=== PATIENT | female | born 1965 | race Caucasian/White ===

== ENCOUNTER 2017-10-22 05:01 | Inpatient (IN) | payer OTHER ==
[2017-10-19 14:02] VITALS: BMI 31.4
[2017-10-22] MEDS ORDERED: GENTAMICIN SO4 80 MG/2 ML VIAL ONE (07:23)
[2017-10-22] MEDS ORDERED: THROMBIN (BOVINE) 5,000 UNIT VIAL TP ONE ×3 (07:23→09:02)
[2017-10-22] MEDS ORDERED: THROMBIN (BOVINE) 20,000 UNIT VIAL TP ONE (07:23)
--- NOTE | 2017-10-22 07:28 | HP ---
History & Physical Update - History History: No Change - Physical Physical: No Change - Assessment Assessment: No Change - Plan Plan: No Change (no changes since visit on 10/15/[address] Sandhu)
[2017-10-22] MEDS ORDERED: MIDAZOLAM HCL 2 MG/2 ML SINGLE DOSE VIAL ONE (07:32)
[2017-10-22] MEDS ORDERED: ROCURONIUM BROMIDE 50 MG/5 ML VIAL ONE (07:32)
[2017-10-22] MEDS ORDERED: PROPOFOL 20 ML ONE (07:32)
[2017-10-22] MEDS ORDERED: LIDOCAINE HCL/PF 2% SDV 5ML VIAL ONE ×2 (07:33→09:55)
[2017-10-22] MEDS ORDERED: ceFAZolin SODIUM 1 GM VIAL ONE ×2 (07:58→17:10)
[2017-10-22] MEDS ORDERED: ceFAZolin SODIUM 1 GM VIAL IVPB ONE (07:59)
[2017-10-22] MEDS ORDERED: VANCOMYCIN 1,000 MG VIAL (RESTRICTED TO ID ONLY) ONE (08:07)
[2017-10-22] MEDS ORDERED: ONDANSETRON 4 MG/2 ML VIAL ONE ×2 (08:07→09:49)
[2017-10-22] MEDS ORDERED: DEXAMETHASONE SOD PHOSPHATE 4 MG/1 ML VIAL ONE ×2 (08:07→09:49)
[2017-10-22] MEDS ORDERED: VANCOMYCIN 1,000 MG VIAL (RESTRICTED TO ID ONLY) IVPB ONE (08:08)
[2017-10-22] MEDS ORDERED: GLYCOPYRROLATE 0.2 MG/1 ML VIAL ONE ×2 (08:30→09:30)
[2017-10-22] MEDS ORDERED: ACETAMINOPHEN INJECTION 100 ML IVPB ONE (08:41)
[2017-10-22] MEDS ORDERED: GELATIN, ABSORBABLE 100 EACH SPONGE TP ONE (08:46)
[2017-10-22] MEDS ORDERED: NEOSTIGMINE METHYLSULFATE 0.5 MG/ML - 10 ML MDV ONE (09:30)
[2017-10-22] MEDS ORDERED: PROMETHAZINE HCL 25 MG/1 ML VIAL IVPUSH PRN (10:26)
[2017-10-22] MEDS ORDERED: ONDANSETRON 4 MG/2 ML VIAL IVPUSH PRN ×2 (10:26→10:32)
[2017-10-22] MEDS ORDERED: diphenhydrAMINE HCL 25 MG CAPSULE (FP) PO PRN (10:32)
[2017-10-22] MEDS ORDERED: morphine SULFATE 4 MG/ML VIAL IVPUSH PRN (10:32)
[2017-10-22] MEDS ORDERED: oxyCODONE HCL 5 MG TABLET PO PRN ×2 (10:32)
[2017-10-22] MEDS ORDERED: LACTATED RINGERS SOLUTION 1,000 ML/1,000 ML INFUS.BAG IV SCH (10:45)
[2017-10-22] MEDS: LACTATED RINGERS SOLUTION 1,000 ML IV SCH ×2 (14:30→23:36)
[2017-10-22] MEDS ORDERED: CEFAZOLIN 1 GM in DEXTROSE 5%-WATER - 50 ML IVPB SCH (16:30)
[2017-10-22] MEDS ORDERED: ALBUTEROL SO4 8 GM HFA INHALER IH PRN (16:46)
[2017-10-22] MEDS ORDERED: DEXTROSE 5%-WATER - 50 ML IVPB ONE (17:10)
[2017-10-22] MEDS: CEFAZOLIN 1 GM in DEXTROSE 5%-WATER - 50 ML IVPB SCH (17:17)
[2017-10-22] MEDS ORDERED: PT OWN MED DRAWER 7, Y5N ONE (18:50)
[2017-10-22] MEDS: levETIRAcetam 500 MG TABLET (FP) PO SCH (21:49)
[2017-10-23] MEDS ORDERED: ceFAZolin SODIUM 1 GM VIAL ONE ×2 (00:33→09:50)
[2017-10-23] MEDS ORDERED: DEXTROSE 5%-WATER - 50 ML IVPB ONE ×2 (00:33→09:50)
[2017-10-23] MEDS: CEFAZOLIN 1 GM in DEXTROSE 5%-WATER - 50 ML IVPB SCH ×2 (01:28→09:52)
[2017-10-23] MEDS: HEPARIN NA (PORCINE) 5,000 UNITS/ML 1ML VIAL SQ SCH ×2 (06:36→13:52)
[2017-10-23 07:22] LABS: HEMATOCRIT 37.5 % (32.4-45.2); HEMOGLOBIN 12.1 GM/dL (10.7-15.3); MCH 24.8 pg (25.7-33.7); MCHC 32.2 g/dl (32.0-36.0); MEAN CELL VOLUME 77.2 fl (80-96); MEAN PLT VOLUME 8.6 fl (7.5-11.1); PLATELET COUNT 203 K/MM3 (134-434); RBC 4.86 M/mm3 (3.60-5.2); RDW 14.2 % (11.6-15.6); WHITE BLOOD COUNT 14.8 K/mm3 (4.0-10.0)
--- NOTE | 2017-10-23 07:57 | PN ---
Progress Note (short form) - Note Progress Note: * Post op day#1.S/P exploration of anterior cervical fusion with removal of hardware C4-C5,C6-C7 ACDF with reconstuction and cage placement under Ga uneventful.Patient stable and doing great.No any anesthesia related problem.Patient DC from the anesthesia care.
[2017-10-23 08:15] LABS: CHLORIDE 107 mmol/L (98-107); SODIUM 141 mmol/L (136-145)
[2017-10-23 08:29] LABS: ALK PHOS 79 U/L (45-117); ANION GAP 8 (8-16); BILIRUBIN,TOTAL 0.3 mg/dL (0.2-1.0); BLOOD UREA NITROGEN 9 mg/dL (7-18); CALCIUM 8.6 mg/dL (8.5-10.1); CO2 26 mmol/L (21-32); CREATININE 0.5 mg/dL (0.55-1.02); GLUCOSE,RANDOM 84 mg/dL (74-106); SGOT/AST 12 U/L (15-37); SGPT/ALT 15 U/L (12-78); TOT PROT 5.9 g/dl (6.4-8.2)
[2017-10-23] MEDS: levETIRAcetam 500 MG TABLET (FP) PO SCH (09:53)
[2017-10-23 10:00] VITALS: BP 99/57; PULSE 54; TEMP 98.8
[2017-10-23] MEDS ORDERED: FOLIC ACID 1 MG TABLET (FP) PO SCH (10:00)
[2017-10-23] MEDS ORDERED: FERROUS SO4 325 MG TABLET (FP) PO SCH (10:00)
[2017-10-23] MEDS ORDERED: BUDESONIDE/FORMETEROL FUMARATE 80/4.5 mcg INHALER IH SCH (10:00)
--- NOTE | 2017-10-23 11:25 | PN ---
Progress Note, Physician Chief Complaint: Spinal surgery History of Present Illness: Post op day#1.S/P exploration of anterior cervical fusion with removal of hardware C4-C5,C6-C7 ACDF with reconstuction and cage placement Seen by Neurosurgery - Current Medication List Current Medications: Active Medications Albuterol Sulfate (Ventolin Hfa Inhaler -) 1 puff IH Q4H PRN PRN Reason: ASTHMA Last Admin: 10/23/17 09:53 Dose: 1 puff Budesonide/Formoterol Fumarate (Symbicort 80/4.5mcg -) 1 puff IH DAILY [facility] Diphenhydramine HCl (Benadryl -) 25 mg PO Q6H PRN PRN Reason: FOR ITCHING Ferrous Sulfate (Feosol -) 325 mg PO DAILY [facility] Last Admin: 10/23/17 09:52 Dose: 325 mg Folic Acid (Folic Acid -) 1 mg PO DAILY [facility] Last Admin: 10/23/17 09:52 Dose: 1 mg Heparin Sodium (Porcine) (Heparin -) 5,000 unit SQ TID [facility] Last Admin: 10/23/17 06:36 Dose: 5,000 unit Lactated Ringer's (Lactated Ringers Solution) 1,000 mls @ 125 mls/hr IV ASDIR [facility] Last Admin: 10/22/17 23:36 Dose: 125 mls/hr Cefazolin Sodium 1 gm/ (Dextrose) 50 mls @ 100 mls/hr IVPB Q8H-IV [facility] Last Admin: 10/23/17 09:52 Dose: 100 mls/hr Levetiracetam (Keppra -) 500 mg PO BID [facility] Last Admin: 10/23/17 09:53 Dose: 500 mg Morphine Sulfate (Morphine Sulfate) 4 mg IVPUSH Q4H PRN PRN Reason: breakthrough Last Admin: 10/22/17 20:43 Dose: 4 mg Ondansetron HCl (Zofran Injection) 4 mg IVPUSH Q6H PRN PRN Reason: NAUSEA AND/OR VOMITING Ondansetron HCl (Zofran Injection) 4 mg IVPUSH Q6H PRN PRN Reason: NAUSEA Oxycodone HCl (Roxicodone -) 5 mg PO Q4H PRN PRN Reason: PAIN LEVEL 1-5 Oxycodone HCl (Roxicodone -) 10 mg PO Q4H PRN PRN Reason: PAIN LEVEL 6-10 Last Admin: 10/23/17 09:51 Dose: 10 mg - Objective Vital Signs: Vital Signs Temperature 98.8 F 10/23/17 09:59 Pulse Rate 54 L 10/23/17 09:59 Respiratory Rate 20 10/23/17 09:59 Blood Pressure 99/57 10/23/17 09:59 O2 Sat by Pulse Oximetry (%) 95 10/22/17 21:00 Constitutional: Yes: Well Nourished, No Distress, Calm Cardiovascular: Yes: Regular Rate and Rhythm Respiratory: Yes: Regular Gastrointestinal: Yes: Normal Bowel Sounds, Soft (a) Labs: CBC, BMP 10/23/17 06:10 10/23/17 06:10
--- NOTE | 2017-10-23 11:37 | PATH ---
Surgical Pathology Report Patient Name: YANELY CISSE Med. Rec. #: [id number] /Age/Gender: 1965 (Age: 52) / F Account: [id number] Location: [facility] MED/SURG Taken: 10/22/2017 Received: 10/22/2017 Reported: 10/23/2017 Physicians: Maxi Carter M.D. Specimen(s) Received SCAR TISSUE ANTERIOR NECK Clinical History Cervical spondylosis and instability with kyphosis Final Diagnosis SKIN, ANTERIOR NECK, EXCISION: DERMAL SCAR. Electronically Signed Akash Aviles M.D. Gross Description Received in formalin labelled "scar tissue anterior neck" is a 45 x 0.3 cm skin depth of up to 0.9 cm. No focal lesion is identified. Operations And Intelligence Assistant sections are submitted in one cassette. [facility]/10/22/2017 [facility]/10/22/2017
[2017-10-23] MEDS ORDERED: PT OWN MED DRAWER 7, Y5N ONE (12:11)
[2017-10-23] MEDS: LACTATED RINGERS SOLUTION 1,000 ML IV SCH (12:12)
--- NOTE | 2017-10-23 14:06 | PN ---
Progress Note (short form) - Note Progress Note: Seen and examined. All cranial nerves intact. Voice strong and clear. Wound cdi. Doing well postop. Further care as per Dr. Jacobson. No need for follow up with me.
--- NOTE | 2017-10-23 15:02 | DS ---
Physical Exam: SUBJECTIVE: s/p C3-C5 cervical fusion with Dr Jacobson and Dr Morin. Patient seen and examined by both surgeons this morning, cleared to go home. Patient is tolerating a regular diet and denies any CP, SOB, N/V, Fever or Chills. OBJECTIVE: CBC, BMP 10/23/17 06:10 10/23/17 06:10 Vital Signs Temperature 98.8 F 10/23/17 09:59 Pulse Rate 54 L 10/23/17 09:59 Respiratory Rate 20 10/23/17 09:59 Blood Pressure 99/57 10/23/17 09:59 O2 Sat by Pulse Oximetry (%) 97 10/23/17 09:00 PHYSICAL EXAM GENERAL: The patient is awake, alert, and fully oriented, in no acute distress. HEAD: Normal with no signs of trauma. EYES: PERRL, sclera anicteric, conjunctiva clear. NECK: Trachea midline, Incision c/d/i with dermabond, surrounding tissue with no evidence of erythema or edema, no d/c, J/p drain pulled with tip full intact and with 20cc of SS discharge in bulb, drain site clean and dry, steri strips applied to drain site and clean dry dressing applied LUNGS:-unlabored resp with no accessory muscle use on RA EXTREMITIES: B/L LE compartments soft supple and non-tender, 2+ pulses, warm, well-perfused, no edema. NEUROLOGICAL: Cranial nerves II through XII grossly intact. Normal speech, gait not observed. PSYCH: Normal mood, normal affect. SKIN: Warm, dry, normal turgor, no rashes or lesions noted. LABS CBC,CMP WBC 14.8 K/mm3 (4.0-10.0) H 10/23/17 06:10 RBC 4.86 M/mm3 (3.60-5.2) 10/23/17 06:10 Hgb 12.1 GM/dL (10.7-15.3) 10/23/17 06:10 Hct 37.5 % (32.4-45.2) 10/23/17 06:10 MCV 77.2 fl (80-96) L 10/23/17 06:10 MCH 24.8 pg (25.7-33.7) L 10/23/17 06:10 MCHC 32.2 g/dl (32.0-36.0) 10/23/17 06:10 RDW 14.2 % (11.6-15.6) 10/23/17 06:10 Plt Count 203 K/MM3 (134-434) 10/23/17 06:10 MPV 8.6 fl (7.5-11.1) 10/23/17 06:10 Sodium 141 mmol/L (136-145) 10/23/17 06:10 Potassium 4.0 mmol/L (3.5-5.1) 10/23/17 06:10 Chloride 107 mmol/L (98-107) 10/23/17 06:10 Carbon Dioxide 26 mmol/L (21-32) 10/23/17 06:10 Anion Gap 8 (8-16) 10/23/17 06:10 BUN 9 mg/dL (7-18) 10/23/17 06:10 Creatinine 0.5 mg/dL (0.55-1.02) L 10/23/17 06:10 Creat Clearance w eGFR > 60 (>60) 10/23/17 06:10 Random Glucose 84 mg/dL (74-106) 10/23/17 06:10 Calcium 8.6 mg/dL (8.5-10.1) 10/23/17 06:10 Total Bilirubin 0.3 mg/dL (0.2-1.0) 10/23/17 06:10 AST 12 U/L (15-37) L 10/23/17 06:10 ALT 15 U/L (12-78) 10/23/17 06:10 Alkaline Phosphatase 79 U/L (45-117) 10/23/17 06:10 Total Protein 5.9 g/dl (6.4-8.2) L 10/23/17 06:10 Albumin 3.0 g/dl (3.4-5.0) L 10/23/17 06:10 HOSPITAL COURSE: Date of Admission:10/22/17 Date of Discharge: 10/23/17 The patient was admitted to the Med-Surg Unit after an elective repair of their Cervical stenosis. Now, s/p exploration or hardware with C3-C5 decompression and fusion. The day of surgery, the patient ambulated the hallways with assistance. Narcotic and non-narcotic pain management control was achieved with an oral and IV approach. POD #1, the surgical drain was removed fully intact and without incident. Tiffany-operative IV ABX were administered. DVT prophylaxis was achieved with SCDs and early ambulation. The patient ambulated with Physical Therapy and no services were recommended upon discharge. Narcotic scripts were checked with [employer] IN[employer]IGATOR prior to escibe. The discharge instructions and an oral pain management plan were reviewed with the patient. All questions answered. Above plan discussed with Dr. Jacobson and agreed. Minutes to complete discharge: 25 Visit type - Case Type Case Type: Scheduled - Emergency Emergency Visit: No - New patient This patient is new to me today: Yes Date on this admission: 10/23/17
== END 2017-10-23 15:30 | disposition home or self-care (01) | DRG 473 ==
LOC: JSAMEDAYSX 05:01 → EDSTATUS 11:00 → J8W 15:16
PROVIDERS: ADMIT Family Medicine; ATTEND Family Medicine
PROC: 0RG20A0 Fusion of 2 or more Cervical Vertebral Joints with Interbody Fusion Device, Anterior Approach, Anterior Column, Open Approach (ICD-10-PCS; 2017-10-22)
PROC: B01BYZZ Fluoroscopy of Spinal Cord using Other Contrast (ICD-10-PCS; 2017-10-22)
PROC: 0PP304Z Removal of Internal Fixation Device from Cervical Vertebra, Open Approach (ICD-10-PCS; principal; 2017-10-22 07:30)
DX: M47.12 Other spondylosis with myelopathy, cervical region (principal); M40.50 Lordosis, unspecified, site unspecified; G40.909 Epilepsy, unspecified, not intractable, without status epilepticus; J45.909 Unspecified asthma, uncomplicated
CPT/HCPCS: 36415; 72125-TC; 76000-TC-FY; 80053; 85027; 86850; 86900; 86901; 88304-TC; 94760; 97116-GP; 97161-GP; J0131; J1644